=== PATIENT | female | born 1990 | race Hispanic/Latino ===

== ENCOUNTER 2017-08-05 10:12 | Emergency (ER) | payer BC, MEDICAID ==
[2017-08-05 10:12] VITALS: BMI 29.0
[2017-08-05] MEDS ORDERED: Sodium Chloride 0.9% 1,000 ML IV STA (10:54)
--- NOTE | 2017-08-05 10:56 | ED PDOC ---
Arrival/HPI - General Chief Complaint: Dizziness/Lightheaded Time Seen by Provider: 08/05/17 10:54 Historian: Patient - History of Present Illness Narrative History of Present Illness (Text): 08/05/17 10:56 27 y/o female, no significant pmh, nkda, c/o headache and dizziness x 1 week. Pt. stated that she has chronic history of headache for the past several years, never follow up, admits feeling dizziness when headache started, been going on for the past 1 week and again today, no change in vision, no night sweat, no rash, no palpitation, no chest pain, no numbness or tingling, no medication taken at home, no other medical or psychological complaints. Past Medical History - Provider Review Nursing Documentation Reviewed: Yes - Infectious Disease Hx of Infectious Diseases: None - Psychiatric Hx Substance Use: No - Surgical History Hx Orthopedic Surgery: Yes (R/T FX JAW) - Anesthesia Hx Anesthesia: Yes Hx Anesthesia Reactions: No Hx Malignant Hyperthermia: No - Suicidal Assessment Feels Threatened In Home Enviroment: No Family/Social History - Physician Review Nursing Documentation Reviewed: Yes Family/Social History: Unknown Family HX Smoking Status: Former Smoker Hx Alcohol Use: No Hx Substance Use: No Allergies/Home Meds Allergies/Adverse Reactions: Allergies lactose Allergy (Severe, Verified 08/05/17 11:03) ANAPHYLAXIS Review of Systems - Review of Systems Constitutional: absent: Fatigue, Fevers Eyes: absent: Vision Changes ENT: absent: Hearing Changes Respiratory: absent: SOB, Cough Cardiovascular: absent: Chest Pain Gastrointestinal: absent: Abdominal Pain, Diarrhea, Nausea, Vomiting Skin: absent: Rash, Pruritis Neurological: Headache, Dizziness. absent: Gait Changes, Facial Droop, Disequilibrium, Seizure Psychiatric: absent: Anxiety, Depression, Suicidal Ideation Physical Exam Vital Signs Reviewed: Yes Vital Signs Temp Pulse Resp BP Pulse Ox 08/05/17 13:26 74 16 125/74 100 08/05/17 12:49 63 18 124/75 99 08/05/17 10:57 98.8 F 78 18 132/97 H 99 Temperature: Afebrile Blood Pressure: Hypertensive Pulse: Regular Respiratory Rate: Normal Appearance: Positive for: Well-Appearing, Non-Toxic, Comfortable Pain Distress: Moderate Mental Status: Positive for: Alert and Oriented X 3 - Systems Exam Head: Present: Atraumatic, Normocephalic, Other (no temporal artery tenderness, no jaw claudication. ). No: Tenderness, Contusion, Swelling, Ecchymosis, Abrasion, Laceration Pupils: Present: PERRL Extroacular Muscles: Present: EOMI Conjunctiva: Present: Normal Ears: Present: NORMAL TM, Normal Canal. No: Erythema Mouth: Present: Moist Mucous Membranes Pharnyx: No: ERYTHEMA, EXUDATE, TONSILS ENLARGED, Uvular Deviation Nose (External): Present: Atraumatic. No: Abrasion, Contusion Nose (Internal): Present: Normal Inspection, No Active Bleeding. No: Rhinorrhea , Septal Hematoma, Epistaxis Neck: Present: Normal Range of Motion, Trachea Midline. No: Meningeal Signs, MIDLINE TENDERNESS, Paraspinal Tenderness, Lymphadenopathy Respiratory/Chest: Present: Clear to Auscultation, Good Air Exchange. No: Respiratory Distress, Accessory Muscle Use Cardiovascular: Present: Regular Rate and Rhythm, Normal S1, S2. No: Murmurs Abdomen: Present: Normal Bowel Sounds. No: Tenderness, Distention, Peritoneal Signs, Rebound, Guarding Back: Present: Normal Inspection Upper Extremity: Present: Normal Inspection. No: Cyanosis, Edema Lower Extremity: Present: Normal Inspection. No: Edema Neurological: Present: GCS=15, CN II-XII Intact, Speech Normal, Motor Func Grossly Intact, Gait Normal, Memory Normal Skin: Present: Warm, Dry, Normal Color. No: Rashes Lymphatic: No: Cervical Adenopathy Psychiatric: Present: Alert, Oriented x 3, Normal Insight, Normal Concentration Medical Decision Making ED Course and Treatment: 08/05/17 11:19 -labs/ua -CT head -EKG -IVF/reglan -observe and reassess 08/05/17 12:38 -Pt. still has headache, toradol IV ordered, will reassess, dizziness resolved. -EKG: NSR @ 62 BPM, no ST elevatio or depression, no T wave inversion. -Labs are non-significant -UA show no UTI -Urine hcg is negative -Ct head show Stable unremarkable unenhanced head CT. No significant new finding compared to prior CT dated 02/05/2015. Resolution of prior left frontal scalp hematoma/ edema. -Pt. feels headache and dizziness resolved, no fever or chills, no signs of influenza. -Discharge home with naproxen, meclizine, avoid driving or operating machine if you feel headache/dizziness, outpatient follow up with the pmd and neurologist within 2 days, return to the Er for any new or worsening signs or symptoms. - Lab Interpretations Lab Results: 08/05/17 11:20 08/05/17 11:20 Lab Results 08/05/17 11:23: Urine Color Yellow, Urine Appearance Clear, Urine pH 6.5, Ur Specific [place] 1.010, Urine Protein Negative, Urine Glucose (UA) Negative, Urine Ketones Negative, Urine Blood Negative, Urine Nitrate Negative, Urine Bilirubin Negative, Urine Urobilinogen 0.2, Ur Leukocyte Esterase Negative 08/05/17 11:20: Sodium 141, Potassium 4.4, Chloride 106, Carbon Dioxide 24, Anion Gap 16, BUN 8, Creatinine 0.6 L, Est GFR ( Amer) > 60, Est GFR (Non -Af Amer) > 60, Random Glucose 90, Calcium 9.9, Magnesium 2.1, Total Bilirubin 1.2, AST 17, ALT 29, Alkaline Phosphatase 60, Total Protein 7.6, Albumin 4.4, Globulin 3.1, Albumin/Globulin Ratio 1.4 08/05/17 11:20: WBC 7.9, RBC 4.43, Hgb 13.2, Hct 39.2, MCV 88.5, MCH 29.8, MCHC 33.7, RDW 12.5, Plt Count 236, MPV 10.6, Gran % 62.7, Lymph % (Auto) 29.6, [place] % (Auto) 6.6 H, Eos % (Auto) 0.6 L, Baso % (Auto) 0.5, Gran # 4.96, Lymph # ( Auto) 2.3, [place] # (Auto) 0.5, Eos # (Auto) 0.1, Baso # (Auto) 0.04 08/05/17 10:55: POC Glucose (mg/dL) 66 - RAD Interpretation Radiology Orders: 08/05/17 11:15 HEAD W/O CONTRAST [CT] Stat FINDINGS: HEMORRHAGE: No intracranial hemorrhage. BRAIN: Normal moreno-white matter differentiation and density are appreciated throughout the cerebrum and cerebellum with the brainstem appearing unremarkable as well. There is no mass effect. There is no suspicious extra-axial fluid collection and the midline brain anatomy appears diffusely unremarkable. No significant interval changes appreciated. VENTRICLES: Unremarkable. No hydrocephalus. CALVARIUM: Unremarkable. Resolution of prior left frontal scalp hematoma/ edema. PARANASAL SINUSES: Unremarkable as visualized. No significant inflammatory changes. MASTOID AIR CELLS: Unremarkable as visualized. No inflammatory changes. OTHER FINDINGS: None. IMPRESSION: Stable unremarkable unenhanced head CT. No significant new finding compared to prior CT dated 02/05/2015. Resolution of prior left frontal scalp hematoma/ edema. Supply Chain Systems Manager: Radiologist - EKG Interpretation EKG Interpretation (Text): 08/05/17 11:19 -EKG: NSR @ 62 BPM, no ST elevatio or depression, no T wave inversion. Interpreted by ED Physician: Yes Type: 12 lead EKG - Medication Orders Current Medication Orders: Discontinued Medications Famotidine (Pepcid) 20 mg IVP STAT STA Stop: 08/05/17 10:55 Last Admin: 08/05/17 12:04 Dose: 20 mg IVP Administration Document 08/05/17 12:04 SE (Rec: 08/05/17 12:04 SE [id number]) Charges for Administration # of IVP Administrations 1 Sodium Chloride (Sodium Chloride 0.9%) 1,000 mls @ 999 mls/hr IV .Q1H1M STA Stop: 08/05/17 11:54 Last Admin: 08/05/17 12:05 Dose: 999 mls/hr eMAR Start Stop Document 08/05/17 12:05 SE (Rec: 08/05/17 12:05 SE [id number]) Intravenous Solution Start Date 08/05/17 Start Time 12:05 Ketorolac Tromethamine (Toradol) 30 mg IVP STAT STA Stop: 08/05/17 12:38 Last Admin: 08/05/17 12:45 Dose: 30 mg MAR Pain Assessment Document 08/05/17 12:45 SE (Rec: 08/05/17 12:45 SE [id number]) Pain Reassessment Is this a pain reassessment? No Sleep Is patient sleeping during reassessment? No Presence of Pain Presence of Pain Yes Pain Scale Used Pain Scale Used Numeric IVP Administration Document 08/05/17 12:45 SE (Rec: 08/05/17 12:45 SE [id number]) Charges for Administration # of IVP Administrations 1 Metoclopramide HCl (Reglan) 10 mg IVP STAT STA Stop: 08/05/17 10:55 Last Admin: 08/05/17 12:04 Dose: 10 mg IVP Administration Document 08/05/17 12:04 SE (Rec: 08/05/17 12:05 SE [id number]) Charges for Administration # of IVP Administrations 1 - PA / PROCESS IMPROVEMENT CONSULTANT / Resident Statement MD/DO has reviewed & agrees with the documentation as recorded. Disposition/Present on Arrival - Present on Arrival Any Indicators Present on Arrival: No History of DVT/PE: No History of Uncontrolled Diabetes: No Urinary Catheter: No History of Decub. Ulcer: No History Surgical Site Infection Following: None - Disposition Have Diagnosis and Disposition been Completed?: Yes Diagnosis: Chronic headache Disposition: HOME/ ROUTINE Disposition Time: 12:10 Condition: IMPROVED Additional Instructions: -Discharge home with naproxen, meclizine, avoid driving or operating machine if you feel headache/dizziness, outpatient follow up with the pmd and neurologist within 2 days, return to the Er for any new or worsening signs or symptoms. Prescriptions: Meclizine [Antivert] 25 mg PO Q6 PRN #30 tab PRN Reason: Other Naproxen 500 mg PO BID PRN #20 tablet PRN Reason: Other Referrals: PCP,NO [Primary Care Provider] - Follow up with primary Uriel Newton MD [Staff Provider] - Follow up with primary Forms: [employer] [address] [facility] ([place]ran), WORK NOTE
[2017-08-05 10:57] VITALS: TEMP 98.8
[2017-08-05 11:32] LABS: PH,URINE 6.5 (4.7-8.0); URINE BILIRUBIN NEGATIVE (NEGATIVE); URINE BLOOD NEGATIVE (NEGATIVE); URINE GLUCOSE (UA) NEGATIVE (NEGATIVE); URINE LEUKOCYTE ESTERASE NEGATIVE Leu/uL (NEGATIVE); URINE NITRATE NEGATIVE (NEGATIVE); URINE PROTEIN NEGATIVE mg/dL (<30 mg/dL); URINE UROBILINOGEN 0.2 E.U./dL (<1 E.U./dL)
[2017-08-05 11:33] LABS: BASO # 0.04 K/mm3 (0.0-2.0); BASO % 0.5 % (0.0-3.0); EOS # 0.1 (0.0-0.7); EOS % 0.6 % (1.5-5.0); GRAN # 4.96 (1.4-6.5); GRAN % 62.7 % (50.0-68.0); HEMOGLOBIN 13.2 g/dL (12.0-16.0); LYMPH # 2.3 (1.2-3.4); LYMPH % 29.6 % (22.0-35.0); MEAN CELL VOLUME 88.5 fl (80.0-105.0); MEAN CORPUSCULAR HEMOGLOBIN 29.8 pg (25.0-35.0); MEAN CORPUSCULAR HGB CONC 33.7 g/dl (31.0-37.0); MEAN PLATELET VOLUME 10.6 fl (7.0-11.0); MONO # 0.5 (0.1-0.6); MONO % 6.6 % (1.0-6.0); RBC 4.43 10^6/uL (3.5-6.1); RED CELL DISTRIBUTION WIDTH 12.5 % (11.5-14.5); WHITE BLOOD COUNT 7.9 10^3/ul (4.5-11.0)
[2017-08-05 11:34] LABS: URINE APPEARANCE CLEAR (CLEAR); URINE COLOR YELLOW (YELLOW)
[2017-08-05 11:47] LABS: ALB/GLOB RATIO 1.4 (1.1-1.8); ALBUMIN 4.4 g/dL (3.0-4.8); ALT/SGPT 29 U/L (7-56); AST/SGOT 17 U/L (14-36); BLOOD UREA NITROGEN 8 mg/dL (7-21); CALCIUM 9.9 mg/dL (8.4-10.5); GFR AFRICAN-AMERICAN > 60; GFR NON-AFRICAN AMERICAN > 60; MAGNESIUM 2.1 mg/dL (1.7-2.2)
--- NOTE | 2017-08-05 12:06 | CT ---
PROCEDURE: CT HEAD WITHOUT CONTRAST. HISTORY: headache, dizziness, chronic COMPARISON: Unenhanced head CT 02/05/2015 TECHNIQUE: Axial computed tomography images were obtained through the head/brain without intravenous contrast. Radiation dose: Total exam DLP = 899.83 mGy-cm. This CT exam was performed using one or more of the following dose reduction techniques: Automated exposure control, adjustment of the mA and/or kV according to patient size, and/or use of iterative reconstruction technique. FINDINGS: HEMORRHAGE: No intracranial hemorrhage. BRAIN: Normal moreno-white matter differentiation and density are appreciated throughout the cerebrum and cerebellum with the brainstem appearing unremarkable as well. There is no mass effect. There is no suspicious extra-axial fluid collection and the midline brain anatomy appears diffusely unremarkable. No significant interval changes appreciated. VENTRICLES: Unremarkable. No hydrocephalus. CALVARIUM: Unremarkable. Resolution of prior left frontal scalp hematoma/ edema. PARANASAL SINUSES: Unremarkable as visualized. No significant inflammatory changes. MASTOID AIR CELLS: Unremarkable as visualized. No inflammatory changes. OTHER FINDINGS: None. IMPRESSION: Stable unremarkable unenhanced head CT. No significant new finding compared to prior CT dated 02/05/2015. Resolution of prior left frontal scalp hematoma/ edema.
[2017-08-05 13:26] VITALS: BP 125/74; PULSE 74; RESP 16; O2SAT 100
--- NOTE | 2017-08-06 02:35 | CARD ---
APPROVED REPORT EKG Measurement Heart [id number] <Conclusion> Normal sinus rhythm with sinus arrhythmia Possible Left atrial enlargement Incomplete right bundle branch block Borderline ECG
== END 2017-08-05 13:29 | disposition home or self-care (01) ==
LOC: ED 10:12
DX: R51 Headache (principal); Z87.891 Personal history of nicotine dependence
CPT/HCPCS: 70450; 80053; 81003; 82948; 83735; 85025; 93005; 96374; 96375; 99285; J1885; J2765; J7040